=== PATIENT | female | born 1980 | race Caucasian/White ===

== ENCOUNTER → 2016-12-19 | Outpatient (CLI) | payer OTHER ==
--- NOTE | 2016-12-19 19:40 | CONS ---
DATE OF CONSULTATION: 12/19/2016 This patient is a 36-year-old lady who has been evaluated in the sleep center for possible obstructive sleep apnea/hypopnea syndrome as a part of preparation for bariatric surgery. HISTORY OF PRESENT ILLNESS/SLEEP-WAKE EVALUATION: Patient's usual sleep schedule on working days is from around 10:30 p.m. until 8 a.m. and on weekends from around 11 p.m. to 8 a.m. Sometimes she has problems falling asleep. She has a TV set in the bedroom. She sleeps on the side position or stomach position and prefers not to sleep on her back. She snores and wakes up from sleep 3 times with nocturia and heartburn. In the morning she wakes up tired, falling asleep during the day. She take naps around 1 p.m. [place] Sleepiness Scale is significantly increased to 14. Past medical history is positive for low level of vitamin D and back pain. PAST SURGICAL HISTORY: Cholecystectomy, breast reduction. MEDICATIONS: 1. Vitamin D. 2. Tylenol on p.r.n. basis. SOCIAL HISTORY: Positive for smoking for about 15 years; quit 2 years ago. Alcohol consumption very rarely. REVIEW OF SYSTEMS: Awakenings from sleep, tiredness and sleepiness during the day, increasing weight. No fevers. No double vision. No recent chest pain. No shortness of breath. No abdominal pain. No bleeding episodes. No blood in urine. No seizure episodes. FAMILY HISTORY: Heart problems, arthritis, cancer, headaches, snoring, diabetes, acid reflux. PHYSICAL EXAMINATION: Pleasant lady without distress. VITAL SIGNS: BP 148/78, HR 72, RR 16. Height 5 feet 2 inches. Weight 308. BMI 56.1. Neck 16 inches in circumference. Temperature 97.9. Oxygen saturation at room air 99%. HEENT: PERRLA, EOMI. Evaluation of oropharynx showed tongue protrudes midline; extremely low position of soft palate. NECK: Supple. No JVD. Thyroid possibly slightly palpable. LUNGS: Clear to percussion and to auscultation. Good air exchange. No wheezing or rhonchi. HEART: S1, S2 regular. No murmurs, gallops or rubs. ABDOMEN: Obese. EXTREMITIES: No clubbing or cyanosis. ELECTRIC POWER LINE REPAIRER: Awake, alert, and oriented x3. Cranial nerves 2 to 7 intact. There is no fasciculation or atrophy noted. No focal deficits observed. IMPRESSION: 1. Snoring, extremely low position of soft palate, multiple awakenings from sleep with nocturia, excessive daytime sleepiness, [place] Sleepiness Scale increased to 14; obstructive sleep apnea/hypopnea syndrome. 2. Obesity; body mass index 56.1. 3. Back problems. 4. Status post cholecystectomy. 5. Status post breast reduction surgery. 6. History of vitamin D deficiency. PLAN: 1. Polysomnography for evaluation of patient's breathing during sleep. 2. CPAP/BiPAP titration if sleep study confirms obstructive sleep apnea-hypopnea syndrome. 3. Preferable position during sleep on the side. 4. No driving if patient feels any sleepiness. Patient is aware of civil and criminal liability for unsafe driving. 5. I will see patient for follow-up visit to explain results of the testing and following plan. Thank you very much for referring this patient for consultation. Sincerely, Jer Rea MD, PhD, FAASM. Diplomat of [place] [employer], Sleep Medicine Board by [place] [employer], [place] [employer]
== END ==
LOC: SLEEP 14:07
PROVIDERS: ATTEND Internal Medicine
DX: G47.33 Obstructive sleep apnea (adult) (pediatric) (principal); E66.9 Obesity, unspecified; Z68.43 Body mass index [BMI] 50.0-59.9, adult; Z90.49 Acquired absence of other specified parts of digestive tract; Z98.890 Other specified postprocedural states; Z79.899 Other long term (current) drug therapy
CPT/HCPCS: 99211

== ENCOUNTER → 2017-01-09 | Outpatient (CLI) | payer OTHER ==
--- NOTE | 2017-01-10 06:42 | MM ---
Reason for exam: screening (asymptomatic). Baseline mammogram. History: Family history of breast cancer in maternal aunt. Reductions of both breasts, 1999. Physical Findings: Nurse did not find any significant physical abnormalities on exam. MG Screening Mammo w CAD Bilateral CC, MLO, and XCCL view(s) were taken. There are scattered fibroglandular densities. Finding: There are typically benign round, diffuse/scattered and grouped calcifications in both breasts. There is no discrete abnormality. There is large dystrophic calcifications in the right upper outer quadrant. These results were verbally communicated with the patient and result sheet given to the patient on 01/09/17. ASSESSMENT: Benign, BI-RAD 2 RECOMMENDATION: Routine screening mammogram of both breasts at age 39.
== END | disposition home or self-care (01) ==
LOC: RADMAMWWP 13:35
PROVIDERS: ATTEND Family Medicine
DX: Z12.31 Encounter for screening mammogram for malignant neoplasm of breast (principal); Z80.3 Family history of malignant neoplasm of breast

== ENCOUNTER 2018-04-22 13:21 | Emergency (ER) | payer OTHER ==
[2018-04-22 13:32] VITALS: BP 143/85; PULSE 74; RESP 18; TEMP 97.4
--- NOTE | 2018-04-22 14:10 | XR ---
Right ankle HISTORY: Trauma and pain 3 views of the right ankle There is soft tissue swelling present. Bone mineralization, joint spaces and alignment are maintained . There is a plantar calcaneal spur. Enthesophyte present at the insertion of the Achilles tendon. IMPRESSION: No acute fracture or dislocation. Follow-up as indicated.
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
== END 2018-04-22 14:48 | disposition home or self-care (01) ==
LOC: EC 13:21
DX: S93.401A Sprain of unspecified ligament of right ankle, initial encounter (principal); Z88.0 Allergy status to penicillin; Z88.1 Allergy status to other antibiotic agents; W19.XXXA Unspecified fall, initial encounter
CPT/HCPCS: 29515; 99283

== ENCOUNTER → 2018-06-04 | Outpatient (CLI) | payer OTHER ==
--- NOTE | 2018-06-05 07:31 | US ---
EXAMINATION TYPE: US thyroid st tissue head/neck DATE OF EXAM: 06/04/2018 COMPARISON: NONE CLINICAL HISTORY: E07.9 Disorder of thyroid. GLAND SIZE: Right Lobe: 4.2 x 1.2 x 1.7 cm Overall Parenchyma: homogenous Left Lobe: 4.5 x 1.3 x 1.7 cm Overall Parenchyma: homogeneous Isthmus Thickness: 0.4 cm NODULES RIGHT: # of nodules measured on right: 0 LEFT: # of nodules measured on left: 0 ISTHMUS: # of nodules measured in the isthmus: 0 Bilateral neck scanned, no evidence of lymphadenopathy. IMPRESSION: Prominent size of the homogeneous thyroid gland. No discrete nodule.
== END | disposition home or self-care (01) ==
LOC: RADUSMAIN 15:59
PROVIDERS: ATTEND Family Medicine
DX: E07.9 Disorder of thyroid, unspecified (principal)
CPT/HCPCS: 76536